=== PATIENT | male | born 1940 | race Caucasian/White ===

== ENCOUNTER 2019-08-27 15:33 | Emergency (ER) | payer OTHER ==
[~2019-08-27] VITALS: Ht 175.3 cm; Wt 76.7 kg
[2019-08-27 15:40] VITALS: BP_SYST 164
--- NOTE | 2019-08-27 16:02 | NUR ---
Patient presents to ER C/O elbow pain. Patient ambulatory to ER, A&Ox4, skin pink & warm, afebrile, pain 09/20, denies N/V/D. Patient states he has left elbow pain and click sound when bending elbow x3 weeks, since [place] [employer] weekend; denies head trauma.
--- NOTE | 2019-08-27 16:02 | NUR ---
Patient to ER bed 2 to gown for evaluation. Side rails up.
--- NOTE | 2019-08-27 16:18 | NUR ---
ER Dr. Christopher at bedside examining patient.
[2019-08-27 17:50] VITALS: BP_SYST 144
--- NOTE | 2019-08-27 17:50 | NUR ---
Patient given written and verbal discharge instructions and verbalizes understanding. ER MD discussed with patient the results and treatment provided. Patient in stable condition. ID arm band removed. Rx of naproxen given. Patient educated on pain management and to follow up with PMD. Pain Scale 3/10 . Opportunity for questions provided and answered. Medication side effect fact sheet provided.
== END 2019-08-27 17:50 | disposition home or self-care (01) ==
LOC: SED 15:33
DX: S82.65XA Nondisplaced fracture of lateral malleolus of left fibula, initial encounter for closed fracture (principal); E11.9 Type 2 diabetes mellitus without complications; W01.0XXA Fall on same level from slipping, tripping and stumbling without subsequent striking against object, initial encounter; Y93.89 Activity, other specified; Y92.89 Other specified places as the place of occurrence of the external cause; Y99.8 Other external cause status
CPT/HCPCS: 99283

== ENCOUNTER 2022-05-03 00:49 | Inpatient (IN) | payer OTHER ==
[~2022-05-03] VITALS: Ht 175.3 cm; Wt 72.7 kg
[2022-05-03 00:49] VITALS: BP_SYST 157
[2022-05-03] MEDS ORDERED: NACL 0.9% 1,000 ML IV ONE ×2 (01:15→01:45)
[2022-05-03 01:35] LABS: BASOPHILS # (AUTO) 0.1 K/uL (0.0-0.2); EOSINOPHILS # (AUTO) 0.1 K/uL (0.0-0.4); LYMPHOCYTES # (AUTO) 0.4 K/uL (1.0-5.5); LYMPHOCYTES % (AUTO) 2.9 % (20.5-51.5); MEAN CORPUSCULAR HEMOGLOBIN 31 pg (27-31); MEAN CORPUSCULAR HGB CONC 33 % (32-36); MEAN CORPUSCULAR VOLUME 92 fL (79.0-98.0); MONOCYTES # (AUTO) 0.4 K/uL (0.0-1.0); NEUTROPHILS # (AUTO) 12.1 K/uL (1.8-7.7); NEUTROPHILS % (AUTO) 92.1 % (40.0-70.0); PLATELET COUNT (AUTO) 261 K/uL (130-430); RED BLOOD CELL COUNT(AUTO) 3.93 MIL/uL (4.2-6.2); RED CELL DISTRIBUTION WIDTH 13.8 % (9.0-15.0); WHITE BLOOD COUNT (AUTO) 13.1 K/uL (4.8-10.8)
[2022-05-03] MEDS ORDERED: ACETAMINOPHEN 500 MG TABLET PO ONE (01:45)
[2022-05-03 01:48] LABS: ALANINE AMINOTRANSFERASE 21 U/L (12-78); ALBUMIN 3.6 g/dL (3.4-4.8); ANION GAP 7 (5-15); ASPARTATE AMINOTRANSFERASE 11 U/L (10-37); CALCIUM 9.2 mg/dL (8.4-11.0); CHLORIDE 104 mmol/L (98-107); CREATININE 1.66 mg/dL (0.55-1.30); GLUCOSE 317 mg/dL (70-99); TOTAL BILIRUBIN 0.4 mg/dL (0.0-1.0); UREA NITROGEN, BLOOD 27 mg/dL (8-21)
[2022-05-03] MEDS ORDERED: IPRATROPIUM/ALBUTEROL SULFATE 3 ML AMPUL.NEB (DUONEB) INH ONE (02:00)
[2022-05-03] MEDS ORDERED: DEXAMETHASONE SOD PHOSPHATE 10 MG/ML VIAL IVP ONE (02:00)
[2022-05-03] MEDS ORDERED: BUDE6HFA INH (02:33)
[2022-05-03] MEDS ORDERED: CITA40TA22 PO (02:34)
[2022-05-03] MEDS ORDERED: LOSA50TA3 PO (02:34)
[2022-05-03] MEDS ORDERED: METF-380 PO (02:35)
[2022-05-03] MEDS ORDERED: MONT-47 PO (02:36)
[2022-05-03] MEDS ORDERED: PRAV40TA63 PO (02:37)
[2022-05-03] MEDS ORDERED: TAMS-11 PO (02:38)
[2022-05-03] MEDS ORDERED: ASPI-1393 PO (02:39)
[2022-05-03] MEDS ORDERED: NAPR-690 PO (02:40)
[2022-05-03] MEDS ORDERED: INSU100V53 SUBCUT (02:40)
[2022-05-03] MEDS ORDERED: NS 500 ML IV ONE (03:30)
[2022-05-03] MEDS ORDERED: DOXYCYCLINE HYCLATE 100 MG in D5W 100 ML IV ONE (04:15)
[2022-05-03] MEDS ORDERED: cefTRIAXone 1 GM VIAL IM ONE (04:15)
[2022-05-03] MEDS ORDERED: cefTRIAXone 1 GM in D5W 50 ML IV ONE (04:15)
[2022-05-03] MEDS ORDERED: DOXYCYCLINE HYCLATE 100 MG VIAL IV ONE (04:18)
[2022-05-03] MEDS ORDERED: cefTRIAXone 1 GM VIAL ONE (04:26)
[2022-05-03] MEDS ORDERED: NACL 0.9% 1,000 ML IV SCH (05:00)
[2022-05-03 06:34] LABS: BILIRUBIN,URINE NEGATIVE (NEGATIVE); BLOOD, URINE NEGATIVE (NEGATIVE); CLARITY/URINE CLEAR (CLEAR); COLOR,URINE YELLOW (YELLOW); GLUCOSE,URINE 1+ (NEGATIVE); KETONES,URINE NEGATIVE (NEGATIVE); LEUKOCYTE ESTERASE ,URINE NEGATIVE (NEGATIVE); NITRITE, URINE NEGATIVE (NEGATIVE); PROTEIN URINE TRACE (NEGATIVE); UROBILINOGEN,URINE 0.2 (0.2-1.0)
[2022-05-03] MEDS ORDERED: ONDANSETRON HCL 4 MG/2 ML VIAL IVP PRN (14:45)
[2022-05-03] MEDS ORDERED: HYDROcodone/ACETAMIN 5-325 MG TAB (NORCO/ VICODIN) PO PRN (14:45)
[2022-05-03] MEDS ORDERED: ACETAMINOPHEN 325 MG TABLET PO PRN (14:45)
[2022-05-03] MEDS ORDERED: LORazepam 2 MG/ML VIAL IVP PRN (14:45)
[2022-05-03] MEDS ORDERED: IPRATROPIUM BROM 0.5 MG/2.5 ML VIAL.NEB (ATROVENT) INH PRN (14:45)
[2022-05-03] MEDS ORDERED: NALOXONE HCL 0.4 MG/ML AMP (NARCAN) IVP PRN ×2 (14:45)
[2022-05-03 14:54] VITALS: BP_SYST 142
[2022-05-03] MEDS: D5/0.45 NS 1,000 ML IV SCH ×2 (15:00→16:29)
[2022-05-03] MEDS ORDERED: NAPROXEN 250 MG TABLET PO PRN (17:30)
[2022-05-03] MEDS ORDERED: FUROSEMIDE 20 MG/2 ML VIAL IVP ONE (17:45)
[2022-05-03] MEDS ORDERED: CARVEDILOL 3.125 MG TABLET (COREG) PO ONE (17:45)
[2022-05-03] MEDS ORDERED: cefTRIAXone 1 GM IVPB PREMIX 50 ML IV SCH (20:00)
[2022-05-03] MEDS: BUDESONIDE 0.5 MG/2 ML AMPUL.NEB INH SCH (20:32)
[2022-05-03] MEDS: ALBUTEROL SULFATE 0.083% 2.5 MG/3 ML VIAL.NEB INH SCH (20:35)
[2022-05-03] MEDS ORDERED: NON-FORMULARY MEDICATION (Pravastatin Sodium 1 TAB) PO SCH (21:00)
[2022-05-03 23:01] VITALS: BP_SYST 134
[2022-05-04] MEDS: ATORVASTATIN 10 MG TABLET PO SCH ×2 (00:36→20:54)
[2022-05-04] MEDS: INSULIN GLARGINE 100 UNITS/ML, 10 ML VIAL SUBCUT SCH ×2 (00:37→21:02)
[2022-05-04] MEDS: INSULIN REGULAR, HUMAN 100 UNITS/ML, 3 ML VIAL (humuLIN R) SUBCUT PRN ×4 (00:40→21:03)
[2022-05-04] MEDS ORDERED: AZITHROMYCIN 500 MG/VIAL (ZITHROMAX) IV ONE (01:39)
[2022-05-04] MEDS: AZITHROMYCIN 500 MG in NS 250 ML IV SCH ×2 (02:27→20:53)
[2022-05-04] MEDS: D5/0.45 NS 1,000 ML IV SCH ×2 (02:28→12:18)
[2022-05-04 02:40] VITALS: BP_SYST 128
[2022-05-04] MEDS: ALBUTEROL SULFATE 0.083% 2.5 MG/3 ML VIAL.NEB INH PRN ×2 (03:06→08:58)
[2022-05-04] MEDS ORDERED: FUROSEMIDE 40 MG/4 ML VIAL IVP ONE ×2 (03:30→09:15)
[2022-05-04] MEDS: BUDESONIDE 0.5 MG/2 ML AMPUL.NEB INH SCH ×2 (07:27→19:58)
[2022-05-04] MEDS: ALBUTEROL SULFATE 0.083% 2.5 MG/3 ML VIAL.NEB INH SCH ×2 (07:27→19:58)
[2022-05-04 07:56] VITALS: BP_SYST 162
[2022-05-04 08:26] LABS: BASOPHILS % (AUTO) 0.1 % (0.0-2.0); HEMATOCRIT 36.2 % (36-54); HEMOGLOBIN 12.2 g/dL (14.0-18.0); LYMPHOCYTES # (AUTO) 1.5 K/uL (1.0-5.5); LYMPHOCYTES % (AUTO) 16.9 % (20.5-51.5); MEAN CORPUSCULAR HEMOGLOBIN 31 pg (27-31); MEAN CORPUSCULAR HGB CONC 34 % (32-36); MEAN CORPUSCULAR VOLUME 92 fL (79.0-98.0); MONOCYTES # (AUTO) 0.9 K/uL (0.0-1.0); MONOCYTES % (AUTO) 10.8 % (1.7-9.3); NEUTROPHILS # (AUTO) 6.3 K/uL (1.8-7.7); NEUTROPHILS % (AUTO) 72.2 % (40.0-70.0); PLATELET COUNT (AUTO) 226 K/uL (130-430); RED BLOOD CELL COUNT(AUTO) 3.96 MIL/uL (4.2-6.2); WHITE BLOOD COUNT (AUTO) 8.7 K/uL (4.8-10.8)
[2022-05-04 08:45] LABS: ANION GAP 9 (5-15); CALCIUM 8.7 mg/dL (8.4-11.0); CHLORIDE 101 mmol/L (98-107); CREATININE 1.43 mg/dL (0.55-1.30); GLUCOSE 143 mg/dL (70-99); PHOSPHORUS 2.1 mg/dL (2.7-4.5); UREA NITROGEN, BLOOD 19 mg/dL (8-21)
[2022-05-04] MEDS: ASPIRIN 81 MG TABLET(ECOTRIN) PO SCH (08:50)
[2022-05-04] MEDS: CITALOPRAM HYDROBROMIDE 20 MG TABLET PO SCH (08:52)
[2022-05-04] MEDS: TAMSULOSIN HCL 0.4 MG CAP PO SCH (08:52)
[2022-05-04] MEDS: LOSARTAN POTASSIUM 50 MG TABLET (COZAAR) PO SCH (08:53)
[2022-05-04] MEDS ORDERED: CARVEDILOL 3.125 MG TABLET (COREG) PO SCH (09:00)
[2022-05-04 11:51] VITALS: BP_SYST 144
[2022-05-04] MEDS: PIPERACILLIN/TAZO 3.375/DEX-IS 50 ML IV SCH ×2 (11:53→17:31)
[2022-05-04] MEDS ORDERED: ISOSORBIDE MONONITRATE 30 MG TAB.ER.24H PO ONE (14:00)
[2022-05-04] MEDS ORDERED: DIGOXIN 0.5 MG/2 ML AMP IVP ONE (14:00)
[2022-05-04 17:28] VITALS: BP_SYST 140
[2022-05-04] MEDS: MONTELUKAST 10 MG TABLET PO SCH (17:29)
[2022-05-04 20:00] VITALS: BP_SYST 120
[2022-05-04] MEDS: CARVEDILOL 6.25 MG TABLET (COREG) PO SCH (20:54)
[2022-05-05 00:28] VITALS: BP_SYST 118
[2022-05-05] MEDS: PIPERACILLIN/TAZO 3.375/DEX-IS 50 ML IV SCH ×4 (01:05→18:15)
[2022-05-05] MEDS: HYDROcodone/ACETAMIN 10-325 MG TAB PO PRN ×3 (05:38→15:17)
[2022-05-05] MEDS: INSULIN REGULAR, HUMAN 100 UNITS/ML, 3 ML VIAL (humuLIN R) SUBCUT PRN ×2 (06:15→12:25)
[2022-05-05] MEDS: ALBUTEROL SULFATE 0.083% 2.5 MG/3 ML VIAL.NEB INH SCH (07:06)
[2022-05-05] MEDS: BUDESONIDE 0.5 MG/2 ML AMPUL.NEB INH SCH (07:07)
[2022-05-05 08:34] VITALS: BP_SYST 112
[2022-05-05] MEDS: ISOSORBIDE MONONITRATE 30 MG TAB.ER.24H PO SCH (09:10)
[2022-05-05] MEDS: TAMSULOSIN HCL 0.4 MG CAP PO SCH (09:10)
[2022-05-05] MEDS: LOSARTAN POTASSIUM 50 MG TABLET (COZAAR) PO SCH (09:11)
[2022-05-05] MEDS: CITALOPRAM HYDROBROMIDE 20 MG TABLET PO SCH (09:11)
[2022-05-05] MEDS: CARVEDILOL 6.25 MG TABLET (COREG) PO SCH (09:11)
[2022-05-05] MEDS: FUROSEMIDE 40 MG/4 ML VIAL IVP SCH (09:12)
[2022-05-05] MEDS: ASPIRIN 81 MG TABLET(ECOTRIN) PO SCH (09:12)
[2022-05-05 11:28] LABS: ANION GAP 9 (5-15); CALCIUM 8.7 mg/dL (8.4-11.0); CHLORIDE 97 mmol/L (98-107); CREATININE 2.49 mg/dL (0.55-1.30); GLUCOSE 253 mg/dL (70-99); UREA NITROGEN, BLOOD 42 mg/dL (8-21)
[2022-05-05] MEDS ORDERED: BISACODYL 10 MG/SUPPOSITORY RC ONE (11:30)
[2022-05-05 11:36] LABS: ALANINE AMINOTRANSFERASE 26 U/L (12-78); ASPARTATE AMINOTRANSFERASE 17 U/L (10-37); DIGOXIN 0.1 ng/mL (0.80-2.00); TOTAL BILIRUBIN 0.9 mg/dL (0.0-1.0)
[2022-05-05] MEDS ORDERED: FUROSEMIDE 20 MG/2 ML VIAL IVP ONE (12:30)
[2022-05-05] MEDS ORDERED: DIGOXIN 0.5 MG/2 ML AMP IVP ONE (12:30)
[2022-05-05 13:00] VITALS: BP_SYST 143
[2022-05-05] MEDS ORDERED: FINA5TAB3 PO (13:09)
[2022-05-05] MEDS: IPRATROPIUM/ALBUTEROL SULFATE 3 ML AMPUL.NEB (DUONEB) INH PRN (13:17)
[2022-05-05] MEDS ORDERED: NACL 0.9% 1,000 ML IV SCH (15:45)
[2022-05-05 16:17] VITALS: BP_SYST 136
[2022-05-05] MEDS: MONTELUKAST 10 MG TABLET PO SCH (18:15)
[2022-05-05 19:00] VITALS: BP_SYST 107
[2022-05-05 19:46] LABS: BILIRUBIN,URINE NEGATIVE (NEGATIVE); BLOOD, URINE NEGATIVE (NEGATIVE); CLARITY/URINE CLEAR (CLEAR); COLOR,URINE YELLOW (YELLOW); GLUCOSE,URINE NEGATIVE (NEGATIVE); KETONES,URINE NEGATIVE (NEGATIVE); LEUKOCYTE ESTERASE ,URINE NEGATIVE (NEGATIVE); NITRITE, URINE NEGATIVE (NEGATIVE); PROTEIN URINE NEGATIVE (NEGATIVE); UROBILINOGEN,URINE 0.2 (0.2-1.0)
[2022-05-05 20:00] VITALS: BP_SYST 107
[2022-05-05] MEDS: INSULIN GLARGINE 100 UNITS/ML, 10 ML VIAL SUBCUT SCH (21:00)
[2022-05-05] MEDS ORDERED: DOCUSATE SODIUM 250 MG CAPSULE PO SCH (21:00)
[2022-05-05] MEDS: ATORVASTATIN 20 MG TABLET PO SCH (21:09)
[2022-05-05] MEDS: AZITHROMYCIN 500 MG in NS 250 ML IV SCH (21:09)
[2022-05-05] MEDS: DOCUSATE SODIUM 100 MG CAPSULE PO SCH (21:09)
[2022-05-05] MEDS: CARVEDILOL 12.5 MG TABLET (COREG) PO SCH (21:11)
[2022-05-06] VITALS (7 sets, daily range): BP systolic 89–124
[2022-05-06] MEDS: PIPERACILLIN/TAZO 3.375/DEX-IS 50 ML IV SCH ×3 (00:14→08:59)
[2022-05-06] MEDS: BUDESONIDE 0.5 MG/2 ML AMPUL.NEB INH SCH ×2 (07:30→19:26)
[2022-05-06] MEDS: ALBUTEROL SULFATE 0.083% 2.5 MG/3 ML VIAL.NEB INH SCH ×2 (07:30→19:26)
[2022-05-06] MEDS: ISOSORBIDE MONONITRATE 30 MG TAB.ER.24H PO SCH (08:19)
[2022-05-06] MEDS: DOCUSATE SODIUM 100 MG CAPSULE PO SCH ×2 (08:19→20:54)
[2022-05-06] MEDS: LOSARTAN POTASSIUM 50 MG TABLET (COZAAR) PO SCH (08:19)
[2022-05-06] MEDS: TAMSULOSIN HCL 0.4 MG CAP PO SCH (08:19)
[2022-05-06] MEDS: ASPIRIN 81 MG TABLET(ECOTRIN) PO SCH (08:20)
[2022-05-06] MEDS: CITALOPRAM HYDROBROMIDE 20 MG TABLET PO SCH (08:20)
[2022-05-06] MEDS: FUROSEMIDE 40 MG/4 ML VIAL IVP SCH (08:21)
[2022-05-06] MEDS: CARVEDILOL 12.5 MG TABLET (COREG) PO SCH ×2 (08:45→21:02)
[2022-05-06] MEDS: HYDROcodone/ACETAMIN 10-325 MG TAB PO PRN (08:46)
[2022-05-06 09:23] LABS: ALANINE AMINOTRANSFERASE 23 U/L (12-78); ALBUMIN 2.6 g/dL (3.4-4.8); ANION GAP 6 (5-15); ASPARTATE AMINOTRANSFERASE 14 U/L (10-37); CALCIUM 8.1 mg/dL (8.4-11.0); CHLORIDE 97 mmol/L (98-107); GLUCOSE 116 mg/dL (70-99); TOTAL BILIRUBIN 0.9 mg/dL (0.0-1.0); UREA NITROGEN, BLOOD 52 mg/dL (8-21)
[2022-05-06 09:36] LABS: BASOPHILS % (AUTO) 0.1 % (0.0-2.0); HEMATOCRIT 30.8 % (36-54); HEMOGLOBIN 10.5 g/dL (14.0-18.0); LYMPHOCYTES # (AUTO) 0.8 K/uL (1.0-5.5); LYMPHOCYTES % (AUTO) 8.2 % (20.5-51.5); MEAN CORPUSCULAR HEMOGLOBIN 31 pg (27-31); MEAN CORPUSCULAR HGB CONC 34 % (32-36); MEAN CORPUSCULAR VOLUME 91 fL (79.0-98.0); MONOCYTES % (AUTO) 10.5 % (1.7-9.3); NEUTROPHILS # (AUTO) 7.6 K/uL (1.8-7.7); NEUTROPHILS % (AUTO) 81.2 % (40.0-70.0); PLATELET COUNT (AUTO) 223 K/uL (130-430); RED BLOOD CELL COUNT(AUTO) 3.38 MIL/uL (4.2-6.2); RED CELL DISTRIBUTION WIDTH 13.7 % (9.0-15.0); WHITE BLOOD COUNT (AUTO) 9.4 K/uL (4.8-10.8)
[2022-05-06 09:57] LABS: DIGOXIN 0.7 ng/mL (0.80-2.00)
[2022-05-06] MEDS: cefTRIAXone 1 GM in D5W 50 ML IV SCH (11:37)
[2022-05-06] MEDS: IPRATROPIUM/ALBUTEROL SULFATE 3 ML AMPUL.NEB (DUONEB) INH PRN (16:00)
[2022-05-06] MEDS: MONTELUKAST 10 MG TABLET PO SCH (17:56)
[2022-05-06] MEDS: AZITHROMYCIN 500 MG in NS 250 ML IV SCH (20:48)
[2022-05-06] MEDS: ATORVASTATIN 20 MG TABLET PO SCH (20:54)
[2022-05-06] MEDS: INSULIN GLARGINE 100 UNITS/ML, 10 ML VIAL SUBCUT SCH (21:10)
[2022-05-07 00:42] VITALS: BP_SYST 132
[2022-05-07 07:11] LABS: EOSINOPHILS % (AUTO) 0.1 % (0.0-4.0); HEMATOCRIT 29.8 % (36-54); HEMOGLOBIN 10.5 g/dL (14.0-18.0); LYMPHOCYTES # (AUTO) 1.4 K/uL (1.0-5.5); LYMPHOCYTES % (AUTO) 14.4 % (20.5-51.5); MEAN CORPUSCULAR HEMOGLOBIN 32 pg (27-31); MEAN CORPUSCULAR HGB CONC 35 % (32-36); MEAN CORPUSCULAR VOLUME 90 fL (79.0-98.0); MONOCYTES # (AUTO) 1.3 K/uL (0.0-1.0); MONOCYTES % (AUTO) 13.7 % (1.7-9.3); NEUTROPHILS # (AUTO) 6.9 K/uL (1.8-7.7); NEUTROPHILS % (AUTO) 71.8 % (40.0-70.0); PLATELET COUNT (AUTO) 232 K/uL (130-430); RED CELL DISTRIBUTION WIDTH 13.8 % (9.0-15.0); WHITE BLOOD COUNT (AUTO) 9.7 K/uL (4.8-10.8)
[2022-05-07 07:39] LABS: ALANINE AMINOTRANSFERASE 11 U/L (12-78); ALBUMIN 2.5 g/dL (3.4-4.8); ANION GAP 10 (5-15); ASPARTATE AMINOTRANSFERASE 15 U/L (10-37); C-REACTIVE PROTEIN QUANT 15.5 mg/dL (0-0.5); CALCIUM 8.1 mg/dL (8.4-11.0); CHLORIDE 96 mmol/L (98-107); CREATININE 1.51 mg/dL (0.55-1.30); GLUCOSE 187 mg/dL (70-99); PHOSPHORUS 2.8 mg/dL (2.7-4.5); TOTAL BILIRUBIN 0.7 mg/dL (0.0-1.0); UREA NITROGEN, BLOOD 44 mg/dL (8-21)
[2022-05-07 07:53] VITALS: BP_SYST 139
[2022-05-07 08:40] LABS: ERYTHROCYTE SEDIMENTATION RATE 71 MM/HR (0-15)
[2022-05-07] MEDS: DOCUSATE SODIUM 100 MG CAPSULE PO SCH ×2 (09:23→20:41)
[2022-05-07] MEDS: CITALOPRAM HYDROBROMIDE 20 MG TABLET PO SCH (09:23)
[2022-05-07] MEDS: CARVEDILOL 12.5 MG TABLET (COREG) PO SCH ×2 (09:24→20:53)
[2022-05-07] MEDS: ASPIRIN 81 MG TABLET(ECOTRIN) PO SCH (09:25)
[2022-05-07] MEDS: LOSARTAN POTASSIUM 50 MG TABLET (COZAAR) PO SCH (09:42)
[2022-05-07] MEDS: TAMSULOSIN HCL 0.4 MG CAP PO SCH (09:42)
[2022-05-07] MEDS: BUDESONIDE 0.5 MG/2 ML AMPUL.NEB INH SCH ×2 (10:03→10:08)
[2022-05-07] MEDS: ALBUTEROL SULFATE 0.083% 2.5 MG/3 ML VIAL.NEB INH SCH ×2 (10:03→10:08)
[2022-05-07 12:00] VITALS: BP_SYST 141
[2022-05-07] MEDS: ISOSORBIDE MONONITRATE 30 MG TAB.ER.24H PO SCH (12:11)
[2022-05-07] MEDS: cefTRIAXone 1 GM in D5W 50 ML IV SCH (12:17)
[2022-05-07] MEDS: INSULIN REGULAR, HUMAN 100 UNITS/ML, 3 ML VIAL (humuLIN R) SUBCUT PRN ×2 (12:55→17:16)
[2022-05-07] MEDS: HYDROcodone/ACETAMIN 10-325 MG TAB PO PRN ×2 (13:19→20:29)
[2022-05-07] MEDS ORDERED: DIGOXIN 0.5 MG/2 ML AMP IVP ONE (14:15)
[2022-05-07 16:50] VITALS: BP_SYST 107
[2022-05-07] MEDS: MONTELUKAST 10 MG TABLET PO SCH (18:08)
[2022-05-07 20:00] VITALS: BP_SYST 130
[2022-05-07] MEDS: ATORVASTATIN 20 MG TABLET PO SCH (20:51)
[2022-05-07] MEDS: INSULIN GLARGINE 100 UNITS/ML, 10 ML VIAL SUBCUT SCH (20:55)
[2022-05-07] MEDS: AZITHROMYCIN 500 MG in NS 250 ML IV SCH (21:11)
[2022-05-08 04:00] VITALS: BP_SYST 122
[2022-05-08] MEDS: BUDESONIDE 0.5 MG/2 ML AMPUL.NEB INH SCH ×2 (07:18→19:40)
[2022-05-08] MEDS: ALBUTEROL SULFATE 0.083% 2.5 MG/3 ML VIAL.NEB INH SCH ×2 (07:18→19:34)
[2022-05-08 07:51] LABS: BASOPHILS % (AUTO) 0.1 % (0.0-2.0); EOSINOPHILS # (AUTO) 0.1 K/uL (0.0-0.4); EOSINOPHILS % (AUTO) 0.5 % (0.0-4.0); HEMATOCRIT 30.8 % (36-54); HEMOGLOBIN 10.6 g/dL (14.0-18.0); LYMPHOCYTES # (AUTO) 1.5 K/uL (1.0-5.5); LYMPHOCYTES % (AUTO) 13.7 % (20.5-51.5); MEAN CORPUSCULAR HEMOGLOBIN 31 pg (27-31); MEAN CORPUSCULAR HGB CONC 34 % (32-36); MEAN CORPUSCULAR VOLUME 90 fL (79.0-98.0); MONOCYTES # (AUTO) 1.5 K/uL (0.0-1.0); NEUTROPHILS # (AUTO) 7.9 K/uL (1.8-7.7); NEUTROPHILS % (AUTO) 71.7 % (40.0-70.0); PLATELET COUNT (AUTO) 250 K/uL (130-430); RED BLOOD CELL COUNT(AUTO) 3.43 MIL/uL (4.2-6.2); RED CELL DISTRIBUTION WIDTH 13.7 % (9.0-15.0)
[2022-05-08 07:53] LABS: ANION GAP 7 (5-15); C-REACTIVE PROTEIN QUANT 9.8 mg/dL (0-0.5); CALCIUM 8.3 mg/dL (8.4-11.0); CHLORIDE 96 mmol/L (98-107); CREATININE 0.98 mg/dL (0.55-1.30); GLUCOSE 231 mg/dL (70-99); PHOSPHORUS 2.4 mg/dL (2.7-4.5); UREA NITROGEN, BLOOD 28 mg/dL (8-21)
[2022-05-08 08:10] LABS: ERYTHROCYTE SEDIMENTATION RATE 62 MM/HR (0-15)
[2022-05-08] MEDS: LOSARTAN POTASSIUM 50 MG TABLET (COZAAR) PO SCH (08:52)
[2022-05-08] MEDS: ISOSORBIDE MONONITRATE 30 MG TAB.ER.24H PO SCH (08:52)
[2022-05-08] MEDS: ASPIRIN 81 MG TABLET(ECOTRIN) PO SCH (08:53)
[2022-05-08] MEDS: DOCUSATE SODIUM 100 MG CAPSULE PO SCH ×2 (08:53→21:06)
[2022-05-08] MEDS: TAMSULOSIN HCL 0.4 MG CAP PO SCH (08:54)
[2022-05-08] MEDS: CITALOPRAM HYDROBROMIDE 20 MG TABLET PO SCH (08:54)
[2022-05-08 08:55] VITALS: BP_SYST 150
[2022-05-08] MEDS: CARVEDILOL 12.5 MG TABLET (COREG) PO SCH ×2 (08:55→21:08)
[2022-05-08] MEDS: HYDROcodone/ACETAMIN 10-325 MG TAB PO PRN ×2 (09:01→21:07)
[2022-05-08] MEDS: cefTRIAXone 1 GM in D5W 50 ML IV SCH (11:29)
[2022-05-08 11:34] VITALS: BP_SYST 155
[2022-05-08] MEDS: INSULIN REGULAR, HUMAN 100 UNITS/ML, 3 ML VIAL (humuLIN R) SUBCUT PRN ×3 (11:50→21:25)
[2022-05-08] MEDS ORDERED: NA PHOS 15 MM in NS 250 ML IV ONE (14:00)
[2022-05-08 15:28] VITALS: BP_SYST 114
[2022-05-08] MEDS: MONTELUKAST 10 MG TABLET PO SCH (17:40)
[2022-05-08 20:00] VITALS: BP_SYST 143
[2022-05-08] MEDS: ATORVASTATIN 20 MG TABLET PO SCH (21:10)
[2022-05-08] MEDS: INSULIN GLARGINE 100 UNITS/ML, 10 ML VIAL SUBCUT SCH (21:24)
[2022-05-09] VITALS (7 sets, daily range): BP systolic 145–154
[2022-05-09] MEDS: INSULIN REGULAR, HUMAN 100 UNITS/ML, 3 ML VIAL (humuLIN R) SUBCUT PRN ×4 (06:54→21:44)
[2022-05-09] MEDS: ALBUTEROL SULFATE 0.083% 2.5 MG/3 ML VIAL.NEB INH SCH ×2 (07:26→21:44)
[2022-05-09] MEDS: BUDESONIDE 0.5 MG/2 ML AMPUL.NEB INH SCH ×2 (07:27→21:45)
[2022-05-09 08:17] LABS: BASOPHILS % (AUTO) 0.3 % (0.0-2.0); EOSINOPHILS # (AUTO) 0.1 K/uL (0.0-0.4); EOSINOPHILS % (AUTO) 1.5 % (0.0-4.0); HEMATOCRIT 30.7 % (36-54); HEMOGLOBIN 10.6 g/dL (14.0-18.0); LYMPHOCYTES # (AUTO) 2.2 K/uL (1.0-5.5); MEAN CORPUSCULAR HEMOGLOBIN 31 pg (27-31); MEAN CORPUSCULAR HGB CONC 35 % (32-36); MEAN CORPUSCULAR VOLUME 90 fL (79.0-98.0); MONOCYTES # (AUTO) 1.5 K/uL (0.0-1.0); MONOCYTES % (AUTO) 15.4 % (1.7-9.3); NEUTROPHILS % (AUTO) 60.8 % (40.0-70.0); PLATELET COUNT (AUTO) 286 K/uL (130-430); RED BLOOD CELL COUNT(AUTO) 3.43 MIL/uL (4.2-6.2); RED CELL DISTRIBUTION WIDTH 13.5 % (9.0-15.0); WHITE BLOOD COUNT (AUTO) 9.9 K/uL (4.8-10.8)
[2022-05-09 08:33] LABS: ERYTHROCYTE SEDIMENTATION RATE 43 MM/HR (0-15)
[2022-05-09 08:37] LABS: ANION GAP 5 (5-15); C-REACTIVE PROTEIN QUANT 8.4 mg/dL (0-0.5); CALCIUM 8.6 mg/dL (8.4-11.0); CHLORIDE 98 mmol/L (98-107); CREATININE 1.02 mg/dL (0.55-1.30); GLUCOSE 183 mg/dL (70-99); UREA NITROGEN, BLOOD 24 mg/dL (8-21)
[2022-05-09] MEDS: ASPIRIN 81 MG TABLET(ECOTRIN) PO SCH (09:06)
[2022-05-09] MEDS: LOSARTAN POTASSIUM 50 MG TABLET (COZAAR) PO SCH (09:06)
[2022-05-09] MEDS: TAMSULOSIN HCL 0.4 MG CAP PO SCH (09:06)
[2022-05-09] MEDS: DOCUSATE SODIUM 100 MG CAPSULE PO SCH ×2 (09:07→21:24)
[2022-05-09] MEDS: CITALOPRAM HYDROBROMIDE 20 MG TABLET PO SCH (09:07)
[2022-05-09] MEDS: CARVEDILOL 12.5 MG TABLET (COREG) PO SCH ×2 (09:09→21:24)
[2022-05-09] MEDS: ISOSORBIDE MONONITRATE 30 MG TAB.ER.24H PO SCH (09:10)
[2022-05-09] MEDS: cefTRIAXone 1 GM in D5W 50 ML IV SCH (12:06)
[2022-05-09] MEDS: MONTELUKAST 10 MG TABLET PO SCH (17:18)
[2022-05-09] MEDS: HYDROcodone/ACETAMIN 10-325 MG TAB PO PRN (21:23)
[2022-05-09] MEDS: ATORVASTATIN 20 MG TABLET PO SCH (21:24)
[2022-05-09] MEDS: PROMETHAZINE-DM 6.25 MG-15 MG/5 ML UDC PO PRN (21:38)
[2022-05-09] MEDS: INSULIN GLARGINE 100 UNITS/ML, 10 ML VIAL SUBCUT SCH (21:46)
[2022-05-10] MEDS: PROMETHAZINE-DM 6.25 MG-15 MG/5 ML UDC PO PRN ×3 (02:30→05:49)
[2022-05-10 04:02] VITALS: BP_SYST 134
[2022-05-10 06:53] LABS: BASOPHILS % (AUTO) 0.4 % (0.0-2.0); EOSINOPHILS # (AUTO) 0.3 K/uL (0.0-0.4); EOSINOPHILS % (AUTO) 3.1 % (0.0-4.0); HEMATOCRIT 30.8 % (36-54); HEMOGLOBIN 10.7 g/dL (14.0-18.0); LYMPHOCYTES # (AUTO) 2.2 K/uL (1.0-5.5); LYMPHOCYTES % (AUTO) 22.5 % (20.5-51.5); MEAN CORPUSCULAR HEMOGLOBIN 31 pg (27-31); MEAN CORPUSCULAR HGB CONC 35 % (32-36); MEAN CORPUSCULAR VOLUME 90 fL (79.0-98.0); MONOCYTES # (AUTO) 1.3 K/uL (0.0-1.0); MONOCYTES % (AUTO) 13.9 % (1.7-9.3); NEUTROPHILS # (AUTO) 5.8 K/uL (1.8-7.7); NEUTROPHILS % (AUTO) 60.1 % (40.0-70.0); PLATELET COUNT (AUTO) 333 K/uL (130-430); RED BLOOD CELL COUNT(AUTO) 3.44 MIL/uL (4.2-6.2); RED CELL DISTRIBUTION WIDTH 13.5 % (9.0-15.0); WHITE BLOOD COUNT (AUTO) 9.6 K/uL (4.8-10.8)
[2022-05-10] MEDS: BUDESONIDE 0.5 MG/2 ML AMPUL.NEB INH SCH (07:23)
[2022-05-10] MEDS: ALBUTEROL SULFATE 0.083% 2.5 MG/3 ML VIAL.NEB INH SCH (07:23)
[2022-05-10 07:37] LABS: ALANINE AMINOTRANSFERASE 22 U/L (12-78); ALBUMIN 2.4 g/dL (3.4-4.8); ANION GAP 5 (5-15); ASPARTATE AMINOTRANSFERASE 16 U/L (10-37); C-REACTIVE PROTEIN QUANT 5.9 mg/dL (0-0.5); CALCIUM 8.5 mg/dL (8.4-11.0); CHLORIDE 99 mmol/L (98-107); CREATININE 0.93 mg/dL (0.55-1.30); GLUCOSE 128 mg/dL (70-99); TOTAL BILIRUBIN 0.5 mg/dL (0.0-1.0); UREA NITROGEN, BLOOD 28 mg/dL (8-21)
[2022-05-10 08:00] VITALS: BP_SYST 144
[2022-05-10] MEDS: LOSARTAN POTASSIUM 50 MG TABLET (COZAAR) PO SCH (08:26)
[2022-05-10] MEDS: DOCUSATE SODIUM 100 MG CAPSULE PO SCH (08:27)
[2022-05-10] MEDS: ASPIRIN 81 MG TABLET(ECOTRIN) PO SCH (08:27)
[2022-05-10] MEDS: CITALOPRAM HYDROBROMIDE 20 MG TABLET PO SCH (08:27)
[2022-05-10] MEDS: CARVEDILOL 12.5 MG TABLET (COREG) PO SCH (08:28)
[2022-05-10] MEDS: TAMSULOSIN HCL 0.4 MG CAP PO SCH (08:28)
[2022-05-10] MEDS: ISOSORBIDE MONONITRATE 30 MG TAB.ER.24H PO SCH (08:29)
[2022-05-10 08:38] LABS: ERYTHROCYTE SEDIMENTATION RATE 67 MM/HR (0-15)
[2022-05-10] MEDS: cefTRIAXone 1 GM in D5W 50 ML IV SCH (10:33)
[2022-05-10] MEDS: INSULIN REGULAR, HUMAN 100 UNITS/ML, 3 ML VIAL (humuLIN R) SUBCUT PRN (11:53)
[2022-05-10 12:00] VITALS: BP_SYST 128
[2022-05-10] MEDS ORDERED: ISOS30TA85 PO (13:16)
[2022-05-10] MEDS ORDERED: LIP20 PO (13:16)
[2022-05-10] MEDS ORDERED: COR12.5 PO (13:16)
[2022-05-10 15:23] VITALS: BP_SYST 128
[2022-05-10 16:36] VITALS: BP_SYST 132
[2022-05-11 14:15] LABS: IMMUNOGLOBULIN E,TOTAL 0.2
== END 2022-05-10 18:00 | disposition home health service (06) | DRG 871 ==
LOC: SED 00:49 → STU 04:59 → SMU 05-09 10:37
PROVIDERS: ADMIT Internal Medicine; ATTEND Internal Medicine
PROC: 0HQ0XZZ Repair Scalp Skin, External Approach (ICD-10-PCS; 2022-05-03)
PROC: 4A00X4Z Measurement of Central Nervous Electrical Activity, External Approach (ICD-10-PCS; principal; 2022-05-05)
DX: A41.9 Sepsis, unspecified organism (principal); J18.9 Pneumonia, unspecified organism; J96.01 Acute respiratory failure with hypoxia; N17.0 Acute kidney failure with tubular necrosis; J44.1 Chronic obstructive pulmonary disease with (acute) exacerbation; E87.1 Hypo-osmolality and hyponatremia; I50.30 Unspecified diastolic (congestive) heart failure; J44.0 Chronic obstructive pulmonary disease with (acute) lower respiratory infection; I11.0 Hypertensive heart disease with heart failure; E88.09 Other disorders of plasma-protein metabolism, not elsewhere classified; N40.0 Benign prostatic hyperplasia without lower urinary tract symptoms; E83.52 Hypercalcemia; R65.20 Severe sepsis without septic shock; E78.5 Hyperlipidemia, unspecified; E83.39 Other disorders of phosphorus metabolism; E11.65 Type 2 diabetes mellitus with hyperglycemia; S01.01XA Laceration without foreign body of scalp, initial encounter; W18.30XA Fall on same level, unspecified, initial encounter; F42.9 Obsessive-compulsive disorder, unspecified; S09.90XA Unspecified injury of head, initial encounter; D64.9 Anemia, unspecified; Z20.822 Contact with and (suspected) exposure to COVID-19; Z79.4 Long term (current) use of insulin; Z79.82 Long term (current) use of aspirin; Z79.899 Other long term (current) drug therapy; Y93.89 Activity, other specified; Y92.89 Other specified places as the place of occurrence of the external cause; Y99.8 Other external cause status
CPT/HCPCS: 36415; 70450-TC; 71045; 72125-TC; 76376; 76770; 80048; 80053; 80162; 81003; 82570; 82785; 82962; 83605; 83735; 83880; 84100; 84302; 84484; 85025; 85651-TC; 86140; 86635; 86738; 87040; 87070-TC; 87205-TC; 87449; 93005; 93306; 94640; 94760; 95816; 96365; 96368; 96375; 97112-GP; 97116-GP; 97163-GP; 97530-GP; 99291; G0378; J0456; J0696; J1100; J1160; J1815; J1940; J2543; J3490; J7050; J7060; J7613; J7626

== ENCOUNTER 2022-05-11 19:05 | Observation (INO) | payer OTHER ==
[~2022-05-11] VITALS: Ht 175.3 cm; Wt 73.5 kg
[~2022-05-11 19:05] MED LIST: ASPI-1393 PO; BUDE6HFA INH; CITA40TA22 PO; COR12.5 PO; FINA5TAB3 PO; INSU100V53 SUBCUT; ISOS30TA85 PO; LIP20 PO; LOSA50TA3 PO; METF-380 PO; MONT10TA22 PO; NAPR-690 PO; PRAV40TA63 PO; TAMS-11 PO
[2022-05-11 20:00] VITALS: BP_SYST 142
--- NOTE | 2022-05-11 20:04 | NUR ---
ER at bedside examining patient.
--- NOTE | 2022-05-11 20:05 | NUR ---
MD Rose at bedside examining pt.
[2022-05-11 20:54] LABS: ANION GAP 7 (5-15); CALCIUM 8.9 mg/dL (8.4-11.0); CHLORIDE 98 mmol/L (98-107); CREATININE 1.21 mg/dL (0.55-1.30); GLUCOSE 305 mg/dL (70-99); UREA NITROGEN, BLOOD 25 mg/dL (8-21)
[2022-05-11 21:01] LABS: ALANINE AMINOTRANSFERASE 24 U/L (12-78); ALBUMIN 2.7 g/dL (3.4-4.8); ASPARTATE AMINOTRANSFERASE 16 U/L (10-37); TOTAL BILIRUBIN 0.5 mg/dL (0.0-1.0)
[2022-05-11] MEDS ORDERED: IPRATROPIUM BROM 0.5 MG/2.5 ML VIAL.NEB (ATROVENT) INH ONE (21:45)
[2022-05-11] MEDS ORDERED: ALBUTEROL SULFATE 0.083% 2.5 MG/3 ML VIAL.NEB INH ONE (21:45)
--- NOTE | 2022-05-11 21:55 | NUR ---
RT at bedside for breathing tx.
--- NOTE | 2022-05-11 23:17 | NUR ---
Admit bed requested Patient will be admitted to care of Dr. Kalpan. Admitted to TELE unit. Diagnosis : HYPOXIA Inpatient (Yes or No) N Observation (Yes or No) Y Orientation concerns or request close to nursing station (Yes or No) N Covid Status : PENDING From Home (Yes or if No enter name of facility) Y Med Rec Completed (Yes of No) Y
--- NOTE | 2022-05-11 23:23 | NUR ---
Covid swab collected and sent to lab.
--- NOTE | 2022-05-12 01:02 | NUR ---
# 20 gauge angiocath placed to L HAND. Use of asceptic technique. Opsite placed over site. Blood return noted. Flushed with 10 cc of normal saline. No evidence of infiltration noted. Patient tolerated well.
--- NOTE | 2022-05-12 04:12 | NUR ---
ADMISSION NOTE Received patient from ER via yonny, received report from Loni/ RADHA. Patient admitted with diagnosis of HYPOXIA. Patient oriented to hospital routine, call light, toileting and safety-patient verbalized understanding. Addendum: 05/12/22 at 0445 by Nicky Grullon RN Educate patient for plan of care , safety ,verbalized understanding.
--- NOTE | 2022-05-12 04:24 | NUR ---
Patient will be admitted to care of MD Kaplan. Admitted to TELE unit. Will go to room 112B. Complete and up to date summary report printed. SBAR report given at bedside to RADHA Jacobs with opportunity for questions.
[2022-05-12 04:27] VITALS: BP_SYST 136
--- NOTE | 2022-05-12 04:43 | NUR ---
Andie Springer for diet order and N
--- NOTE | 2022-05-12 04:51 | NUR ---
CONSULTATION PAGED/CALLED Reason for Consultation: HYPOXIA Person Who was Notified: LEFT PHONE NO. IN EXCHANGE Consulting Physician: DR. MUNIZ Security Auditor Specialty: RACETRACK STEWARD Ordering Physician: DR. DEVINE
--- NOTE | 2022-05-12 05:46 | NUR ---
Ambulate to bathroom with steady gait , with mild SOB .kept on oxygen 2 liters/NC.
[2022-05-12] MEDS ORDERED: DEXTROSE 50% JECT 50 ML DISP.SYRIN IVP PRN (07:15)
[2022-05-12] MEDS ORDERED: ACETAMINOPHEN 325 MG TABLET PO PRN ×2 (07:15→10:15)
[2022-05-12] MEDS ORDERED: IPRATROPIUM BROM 0.5 MG/2.5 ML VIAL.NEB (ATROVENT) INH PRN (07:15)
[2022-05-12] MEDS ORDERED: ALBUTEROL SULFATE 0.083% 2.5 MG/3 ML VIAL.NEB INH PRN (07:15)
[2022-05-12] MEDS ORDERED: D5W 1,000 ML IV PRN (07:15)
[2022-05-12] MEDS ORDERED: ONDANSETRON HCL 4 MG/2 ML VIAL IVP PRN (07:15)
[2022-05-12] MEDS ORDERED: GLUCOSE (DEXTROSE) ORAL GEL -Adults PO PRN (07:15)
--- NOTE | 2022-05-12 07:26 | NUR ---
CONSULTATION PAGED REASON FOR CONSULTATION:PNEUMON A WAS CONSULT CALLED? PERSON WHO WAS NOTIFIED:SIN CONSULTING PHYSICIAN:DIMITRIS OQUENDO VOCATIONAL EXAMINER SPECIALTY:ID VOCATIONAL EXAMINER PHONE [phone]: REQUESTING PHYSICIANDENISE COX
[2022-05-12 07:45] VITALS: BP_SYST 148
--- NOTE | 2022-05-12 07:45 | NUR ---
OPENING NOTE Patient sitting at side of bed. A/O x 4, Kazakh speaking. Patient Breathing even and unlabored on oxygen saturations at 100%. NO pain, no distress, no SOB. Patient on Cardiac diet. Patient has to L hand 22g, patent on SL. Bed is locked in lowest position. Call light within reach, all needs met, will continue to monitor.
[2022-05-12] MEDS: BUDESONIDE 0.5 MG/2 ML AMPUL.NEB INH SCH ×2 (09:00→20:13)
[2022-05-12 09:25] LABS: BASOPHILS % (AUTO) 0.2 % (0.0-2.0); EOSINOPHILS # (AUTO) 0.2 K/uL (0.0-0.4); EOSINOPHILS % (AUTO) 1.7 % (0.0-4.0); HEMATOCRIT 31.6 % (36-54); HEMOGLOBIN 10.7 g/dL (14.0-18.0); LYMPHOCYTES # (AUTO) 1.7 K/uL (1.0-5.5); LYMPHOCYTES % (AUTO) 13.3 % (20.5-51.5); MEAN CORPUSCULAR HEMOGLOBIN 31 pg (27-31); MEAN CORPUSCULAR HGB CONC 34 % (32-36); MEAN CORPUSCULAR VOLUME 91 fL (79.0-98.0); MONOCYTES # (AUTO) 1.1 K/uL (0.0-1.0); MONOCYTES % (AUTO) 8.8 % (1.7-9.3); NEUTROPHILS # (AUTO) 9.4 K/uL (1.8-7.7); PLATELET COUNT (AUTO) 367 K/uL (130-430); RED BLOOD CELL COUNT(AUTO) 3.49 MIL/uL (4.2-6.2); RED CELL DISTRIBUTION WIDTH 13.9 % (9.0-15.0); WHITE BLOOD COUNT (AUTO) 12.4 K/uL (4.8-10.8)
[2022-05-12] MEDS: METHYLPREDNISOLONE SOD SUCC 40 MG/ML VIAL IVP SCH (11:01)
[2022-05-12] MEDS: IPRATROPIUM BROM 0.5 MG/2.5 ML VIAL.NEB (ATROVENT) INH SCH ×4 (11:15→23:20)
[2022-05-12] MEDS: ALBUTEROL SULFATE 0.083% 2.5 MG/3 ML VIAL.NEB INH SCH ×4 (11:16→23:20)
--- NOTE | 2022-05-12 11:27 | NUR ---
MD OLIVEROS Spoke with MD Oliveros regarding patient's status and WBC level. Per MD he stated no further changes at this moment.
[2022-05-12 11:30] VITALS: BP_SYST 127
[2022-05-12] MEDS: INSULIN REGULAR, HUMAN 100 UNITS/ML, 3 ML VIAL (humuLIN R) SUBCUT PRN ×3 (11:47→21:41)
--- NOTE | 2022-05-12 12:15 | NUR ---
ROUNDS: Patient resting in bed with at bedside. Patient Breathing even and unlabored on oxygen. No pain, no distress, no SOB. Bed is locked in lowest position. Call light within reach, all needs met, will continue to monitor.
[2022-05-12] MEDS: AZITHROMYCIN 500 MG in NS 250 ML IV SCH (13:04)
[2022-05-12] MEDS: cefTRIAXone 1 GM in D5W 50 ML IV SCH (14:20)
--- NOTE | 2022-05-12 14:30 | NUR ---
MED REC Spoke with MD Pineda regarding the Med rec and he stated he will work on it.
[2022-05-12 14:41] VITALS: BP_SYST 127
[2022-05-12 15:49] VITALS: BP_SYST 137
[2022-05-12] MEDS ORDERED: ISOSORBIDE MONONITRATE 30 MG TAB.ER.24H PO ONE (16:30)
[2022-05-12] MEDS ORDERED: ASPIRIN 81 MG TABLET(ECOTRIN) PO ONE (16:30)
[2022-05-12] MEDS ORDERED: TAMSULOSIN HCL 0.4 MG CAP PO ONE (16:30)
[2022-05-12] MEDS ORDERED: LOSARTAN POTASSIUM 50 MG TABLET (COZAAR) PO ONE (16:45)
[2022-05-12] MEDS ORDERED: FINASTERIDE 5 MG TABLET (PROSCAR) PO ONE (17:00)
[2022-05-12] MEDS: MONTELUKAST 10 MG TABLET PO SCH (17:09)
[2022-05-12] MEDS ORDERED: CITALOPRAM HYDROBROMIDE 20 MG TABLET PO ONE (17:30)
--- NOTE | 2022-05-12 18:34 | NUR ---
CLOSING NOTE Patient sitting at side of bed. A/O x 4, Niuean speaking. Patient Breathing even and unlabored on oxygen saturations at 100%. NO pain, no distress, no SOB. Patient on Cardiac diet. Patient has to L hand 22g, patent on SL. Bed is locked in lowest position. Call light within reach, all needs met, will endorse to nightshift nurse.
--- NOTE | 2022-05-12 19:30 | NUR ---
OPENING NOTE PT LYING IN BED WITH BREATHING TREATMENT. BREATHING EVEN AND NON LABORED. NO S/S OF ACUTE DISTRESS OR PAIN. BED ALARM ON. SAFETY CHECKS IN PLACE. CONTINUE TO MONITOR.
[2022-05-12 20:00] VITALS: BP_SYST 129
[2022-05-12] MEDS: ATORVASTATIN 20 MG TABLET PO SCH (21:11)
[2022-05-12] MEDS: CARVEDILOL 12.5 MG TABLET (COREG) PO SCH (21:12)
[2022-05-12] MEDS: INSULIN GLARGINE 100 UNITS/ML, 10 ML VIAL SUBCUT SCH (21:38)
--- NOTE | 2022-05-12 23:00 | NUR ---
ROUND NOTE PT LYING IN BED WITH BREATHING TREATMENT. BREATHING EVEN AND NON LABORED. NO S/S OF ACUTE DISTRESS OR PAIN. PT WET HIS BED LINENS WHILE USING URINAL. GIVEN PERINEAL CARE. CHANGED TO NEW LINENS. BED ALARM ON AND SAFETY CHECKS IN PLACE. CONTINUE TO MONITOR
[2022-05-13] VITALS (7 sets, daily range): BP systolic 121–148
[2022-05-13] MEDS: ALBUTEROL SULFATE 0.083% 2.5 MG/3 ML VIAL.NEB INH SCH ×5 (03:00→20:53)
[2022-05-13] MEDS: IPRATROPIUM BROM 0.5 MG/2.5 ML VIAL.NEB (ATROVENT) INH SCH ×5 (03:00→20:53)
--- NOTE | 2022-05-13 06:55 | NUR ---
CLOSING NOTE PT LYING BED AND EYES CLOSED. BREATHING EVEN AND NONLABORED. NO S/S OF ACUTE DISTRESS OR PAIN. MORNING BLOOD GLUCOSE 107 mg/mL. SAFETY CHECKS ON PLACE. BED ALARM ON AND LOWEST POSITION. ENDORSED TO DAY SHIFT NURSE.
--- NOTE | 2022-05-13 07:25 | NUR ---
OPENING NOTE Patient sitting at side of bed. A/O x 4, Citizen Of [place] speaking. Patient Breathing even and unlabored on RA saturations at 95%. NO pain, no distress, no SOB. Patient on Cardiac diet. Patient has to L hand 22g, patent on SL. Bed is locked in lowest position. Call light within reach, all needs met, will continue to monitor.
[2022-05-13] MEDS: BUDESONIDE 0.5 MG/2 ML AMPUL.NEB INH SCH ×2 (07:28→20:53)
[2022-05-13 08:23] LABS: BASOPHILS % (AUTO) 0.2 % (0.0-2.0); EOSINOPHILS # (AUTO) 0.1 K/uL (0.0-0.4); EOSINOPHILS % (AUTO) 0.4 % (0.0-4.0); HEMATOCRIT 31.1 % (36-54); HEMOGLOBIN 10.5 g/dL (14.0-18.0); LYMPHOCYTES # (AUTO) 2.3 K/uL (1.0-5.5); LYMPHOCYTES % (AUTO) 16.9 % (20.5-51.5); MEAN CORPUSCULAR HEMOGLOBIN 30 pg (27-31); MEAN CORPUSCULAR HGB CONC 34 % (32-36); MEAN CORPUSCULAR VOLUME 90 fL (79.0-98.0); MONOCYTES # (AUTO) 1.1 K/uL (0.0-1.0); MONOCYTES % (AUTO) 7.9 % (1.7-9.3); NEUTROPHILS # (AUTO) 10.1 K/uL (1.8-7.7); NEUTROPHILS % (AUTO) 74.6 % (40.0-70.0); PLATELET COUNT (AUTO) 426 K/uL (130-430); RED BLOOD CELL COUNT(AUTO) 3.47 MIL/uL (4.2-6.2); RED CELL DISTRIBUTION WIDTH 13.5 % (9.0-15.0); WHITE BLOOD COUNT (AUTO) 13.6 K/uL (4.8-10.8)
[2022-05-13 08:27] LABS: ALANINE AMINOTRANSFERASE 22 U/L (12-78); ALBUMIN 2.6 g/dL (3.4-4.8); ANION GAP 4 (5-15); ASPARTATE AMINOTRANSFERASE 9 U/L (10-37); CALCIUM 8.8 mg/dL (8.4-11.0); CHLORIDE 100 mmol/L (98-107); CREATININE 1.01 mg/dL (0.55-1.30); GLUCOSE 85 mg/dL (70-99); TOTAL BILIRUBIN 0.4 mg/dL (0.0-1.0); UREA NITROGEN, BLOOD 25 mg/dL (8-21)
[2022-05-13] MEDS: LOSARTAN POTASSIUM 50 MG TABLET (COZAAR) PO SCH (08:54)
[2022-05-13] MEDS: TAMSULOSIN HCL 0.4 MG CAP PO SCH (08:54)
[2022-05-13] MEDS: ISOSORBIDE MONONITRATE 30 MG TAB.ER.24H PO SCH (08:54)
[2022-05-13] MEDS: CARVEDILOL 12.5 MG TABLET (COREG) PO SCH ×2 (08:55→21:38)
[2022-05-13] MEDS: CITALOPRAM HYDROBROMIDE 20 MG TABLET PO SCH (08:55)
[2022-05-13] MEDS: ASPIRIN 81 MG TABLET(ECOTRIN) PO SCH (08:55)
[2022-05-13] MEDS: FINASTERIDE 5 MG TABLET (PROSCAR) PO SCH (08:55)
[2022-05-13] MEDS: METHYLPREDNISOLONE SOD SUCC 40 MG/ML VIAL IVP SCH (09:42)
--- NOTE | 2022-05-13 12:15 | NUR ---
ROUNDS: Patient in bed, eating. Patient Breathing even and unlabored on RA. No pain, no distress, no SOB. Bed is locked in lowest position. Call light within reach, all needs met, will continue to monitor.
[2022-05-13] MEDS: AZITHROMYCIN 500 MG in NS 250 ML IV SCH (12:38)
[2022-05-13] MEDS: cefTRIAXone 1 GM in D5W 50 ML IV SCH (12:40)
--- NOTE | 2022-05-13 14:04 | NUR ---
IV SITE Patient noted that IV site to left hand had infiltrated. Stopped IV fluids and changed IV site to left forarm 22g. New IV site patent and infusion well to pump. Patient not in pain.
--- NOTE | 2022-05-13 14:55 | NUR ---
PAIN TO OLD IV SITE Patient in pain from infiltration. Only medication available is Tylenol. Patient requested [place]. Called MD Pineda who gave new orders. Orders carried out.
[2022-05-13] MEDS ORDERED: NALOXONE HCL 0.4 MG/ML AMP (NARCAN) IVP PRN (15:00)
[2022-05-13] MEDS ORDERED: HYDROcodone/ACETAMIN 5-325 MG TAB (NORCO/ VICODIN) PO PRN (15:00)
[2022-05-13] MEDS ORDERED: PRED20TA PO (15:19)
--- NOTE | 2022-05-13 16:10 | NUR ---
ROUNDS: Patient in bed,with family at bedside. Patient Breathing even and unlabored on RA. No pain, no distress, no SOB. Bed is locked in lowest position. Call light within reach, all needs met, will continue to monitor.
[2022-05-13] MEDS: INSULIN REGULAR, HUMAN 100 UNITS/ML, 3 ML VIAL (humuLIN R) SUBCUT PRN ×2 (16:41→21:41)
[2022-05-13] MEDS: MONTELUKAST 10 MG TABLET PO SCH (17:23)
--- NOTE | 2022-05-13 18:56 | NUR ---
CLOSING NOTE Patient laying in bed, with at bedside. A/O x 4, Croatian speaking. Patient Breathing even and unlabored on RA. NO pain, no distress, no SOB. Patient on Cardiac diet. Patient has to L forearm 22g, patent on SL. Bed is locked in lowest position. Call light within reach, all needs met, will endorse to nightshift nurse.
--- NOTE | 2022-05-13 20:00 | NUR ---
Patient sitting at side of bed. A/O x 4, Estonian speaking. Patient Breathing even and unlabored on oxygen saturations at 100%. NO pain, no distress, no SOB. Patient on Cardiac diet. Patient has to L hand 22g, patent on SL. pt has order for DC. awaiting home health o2 to be delivered at home before DC. Bed is locked in lowest position. Call light within reach, all needs met, will continue to monitor.
[2022-05-13] MEDS: ATORVASTATIN 20 MG TABLET PO SCH (21:37)
[2022-05-13] MEDS: INSULIN GLARGINE 100 UNITS/ML, 10 ML VIAL SUBCUT SCH (21:45)
[2022-05-14] MEDS: IPRATROPIUM BROM 0.5 MG/2.5 ML VIAL.NEB (ATROVENT) INH SCH ×5 (00:28→16:15)
[2022-05-14] MEDS: ALBUTEROL SULFATE 0.083% 2.5 MG/3 ML VIAL.NEB INH SCH ×5 (00:29→16:15)
[2022-05-14 01:34] VITALS: BP_SYST 149
[2022-05-14] MEDS: BUDESONIDE 0.5 MG/2 ML AMPUL.NEB INH SCH (07:36)
[2022-05-14 08:07] VITALS: BP_SYST 142
--- NOTE | 2022-05-14 08:07 | NUR ---
Patient stable; resting comfortably in bed with no distress noted and no complaint of pain at this time.
[2022-05-14] MEDS: ASPIRIN 81 MG TABLET(ECOTRIN) PO SCH ×2 (09:00→09:24)
--- NOTE | 2022-05-14 09:04 | NUR ---
ROOM AIR OXYGEN SATURATION WHILE IN BED DISCONTINUED O2, ROOM AIR 02 SAT 93%, WILL AMBULATE PATIENT LATER AND WILL CHECK O2 SAT.
--- NOTE | 2022-05-14 09:08 | NUR ---
Patient on room air, ambulating in hallway with standby assist from RN. Checked O2 sat once back in room: 91%.
[2022-05-14] MEDS: ISOSORBIDE MONONITRATE 30 MG TAB.ER.24H PO SCH (09:22)
[2022-05-14] MEDS: CITALOPRAM HYDROBROMIDE 20 MG TABLET PO SCH (09:22)
[2022-05-14] MEDS: CARVEDILOL 12.5 MG TABLET (COREG) PO SCH (09:23)
[2022-05-14] MEDS: LOSARTAN POTASSIUM 50 MG TABLET (COZAAR) PO SCH (09:23)
[2022-05-14] MEDS: FINASTERIDE 5 MG TABLET (PROSCAR) PO SCH (09:23)
[2022-05-14] MEDS: TAMSULOSIN HCL 0.4 MG CAP PO SCH (09:24)
[2022-05-14] MEDS: METHYLPREDNISOLONE SOD SUCC 40 MG/ML VIAL IVP SCH (09:24)
--- NOTE | 2022-05-14 09:24 | NUR ---
Scheduled medications given per order. Emptied 250mls of clear, yellow urine from urinal. Patient stable at this time.
--- NOTE | 2022-05-14 09:33 | NUR ---
ROOM AIR OXYGEN POST AMBULATION PATIENT O2 SAT POST AMBULATION 91%
[2022-05-14 11:19] VITALS: BP_SYST 140
[2022-05-14] MEDS: AZITHROMYCIN 500 MG in NS 250 ML IV SCH (11:50)
--- NOTE | 2022-05-14 11:50 | NUR ---
Scheduled IV abx given per order. Checked blood sugar: 177 mg/dl - will cover per sliding scale. Patient stable at this time. Addendum: 05/14/22 at 1201 by Betty Hook RN Emptied 275mls of clear, yellow urine from urinal.
[2022-05-14] MEDS: cefTRIAXone 1 GM in D5W 50 ML IV SCH (14:02)
--- NOTE | 2022-05-14 14:02 | NUR ---
Scheduled IV abx and po medication given per order. Patient stable with and daughter at bedside. Addendum: 05/14/22 at 1442 by Betty Hook RN 1410: Covered per sliding scale: 2 units
[2022-05-14] MEDS: INSULIN REGULAR, HUMAN 100 UNITS/ML, 3 ML VIAL (humuLIN R) SUBCUT PRN (14:10)
[2022-05-14 16:16] VITALS: BP_SYST 140
[2022-05-14 16:48] VITALS: BP_SYST 124
--- NOTE | 2022-05-14 16:50 | NUR ---
Discharge instructions Both written and verbal discharge instructions given to patient, , and daughter. Patient given medication reconciliation form and advised to waste picker prescription medication from [facility] in [place]. Encouraged to follow up with PCP in 1 week. Patient and states that appointment already scheduled on 05/19/22 at 3:15pm. Also encouraged to call and schedule appointment with pulmonary doctor in 1 week (# provided [phone]). Exit Care provided. Patient verbalized understanding. Ambulatory with steady gait for discharge to home. ID band removed and peripheral IV removed intact with no active bleeding; pressure dressing applied to site. All belongings with patient. DME and portable oxygen delivered to patient's home earlier today.
--- NOTE | 2022-05-14 16:55 | NUR ---
Discharge Patient discharged in stable condition; accompanied by and daughter. No distress noted at time of discharge.
== END 2022-05-14 16:55 | disposition home or self-care (01) ==
LOC: SED 19:05 → STU 05-12 03:29
PROVIDERS: ADMIT Internal Medicine; ATTEND Internal Medicine
DX: J96.01 Acute respiratory failure with hypoxia (principal); Z20.822 Contact with and (suspected) exposure to COVID-19; J44.1 Chronic obstructive pulmonary disease with (acute) exacerbation; J44.0 Chronic obstructive pulmonary disease with (acute) lower respiratory infection; J18.9 Pneumonia, unspecified organism; E11.9 Type 2 diabetes mellitus without complications; N40.0 Benign prostatic hyperplasia without lower urinary tract symptoms; I10 Essential (primary) hypertension; E78.5 Hyperlipidemia, unspecified; Z79.4 Long term (current) use of insulin; Z87.891 Personal history of nicotine dependence; Z79.899 Other long term (current) drug therapy
CPT/HCPCS: 80053 ×2; 82550; 83880; 84484; 36415 ×3; 93005; 71045; 94640 ×4; 83605; 87426; 96365; 96366 ×3; 96372 ×3; 96375; 85025 ×2; 87081; 82803; 94760 ×3; 99285; 84145; 82785; 96376 ×2; 96368; J7613 ×4; J0456 ×2; J0696 ×2; J1815 ×2; J1030 ×3; J7626 ×3; J7060 ×2; J7050 ×2; G0378 ×3; J2405

== ENCOUNTER 2023-05-24 16:59 | Emergency (ER) | payer OTHER ==
[~2023-05-24] VITALS: Ht 172.7 cm; Wt 79.4 kg
[~2023-05-24 16:59] MED LIST changes: +FINA-37 PO; -FINA5TAB3 PO; +LOSA-413 PO; -LOSA50TA3 PO; +MONT-47 PO; -MONT10TA22 PO; +PRED20TA PO
[2023-05-24 17:00] VITALS: BP_SYST 167; PULSE 87; RESP 18; TEMP 97.1; O2SAT 96
[2023-05-24] MEDS ORDERED: DEXTROSE 50% JECT 50 ML DISP.SYRIN IVP ONE (17:15)
[2023-05-24] MEDS ORDERED: D10W 1,000 ML IV SCH (17:30)
[2023-05-24] MEDS ORDERED: CITA10TA14 PO (17:48)
[2023-05-24] MEDS ORDERED: ALBMDI INH (17:48)
[2023-05-24] MEDS ORDERED: ATOR20TA64 PO (17:49)
[2023-05-24 18:11] LABS: BASOPHILS % (AUTO) 0.5 % (0.0-2.0); EOSINOPHILS # (AUTO) 0.3 K/uL (0.0-0.4); HEMATOCRIT 37.2 % (36-54); HEMOGLOBIN 12.9 g/dL (14.0-18.0); LYMPHOCYTES # (AUTO) 1.6 K/uL (1.0-5.5); LYMPHOCYTES % (AUTO) 17.8 % (20.5-51.5); MEAN CORPUSCULAR HEMOGLOBIN 32 pg (27-31); MEAN CORPUSCULAR HGB CONC 35 % (32-36); MEAN CORPUSCULAR VOLUME 92 fL (79.0-98.0); MONOCYTES # (AUTO) 0.7 K/uL (0.0-1.0); MONOCYTES % (AUTO) 7.3 % (1.7-9.3); NEUTROPHILS # (AUTO) 6.6 K/uL (1.8-7.7); NEUTROPHILS % (AUTO) 71.4 % (40.0-70.0); PLATELET COUNT (AUTO) 273 K/uL (130-430); RED BLOOD CELL COUNT(AUTO) 4.06 MIL/uL (4.2-6.2); RED CELL DISTRIBUTION WIDTH 14.4 % (9.0-15.0); WHITE BLOOD COUNT (AUTO) 9.2 K/uL (4.8-10.8)
[2023-05-24 18:29] LABS: ALANINE AMINOTRANSFERASE 22 U/L (12-78); ALBUMIN 3.7 g/dL (3.4-4.8); ANION GAP 7 (5-15); ASPARTATE AMINOTRANSFERASE 12 U/L (10-37); BILIRUBIN,DIRECT 0.1 mg/dL (0.0-0.3); CALCIUM 8.8 mg/dL (8.4-11.0); CARBON DIOXIDE 29 mmol/L (23-29); CHLORIDE 101 mmol/L (98-107); GLUCOSE 169 mg/dL (74-106); POTASSIUM 4.1 mmol/L (3.5-5.1); SODIUM SERUM 137 mmol/L (136-145); TOTAL BILIRUBIN 0.6 mg/dL (0.0-1.0); TOTAL PROTEIN, SERUM 7.2 g/dL (6.4-8.3); UREA NITROGEN, BLOOD 18 mg/dL (8-21)
[2023-05-24 19:21] LABS: ALCOHOL, BLOOD < 3 mg/dL (<10)
[2023-05-24 19:38] LABS: BILIRUBIN,URINE NEGATIVE (NEGATIVE); BLOOD, URINE NEGATIVE (NEGATIVE); CLARITY/URINE CLEAR (CLEAR); COLOR,URINE YELLOW (YELLOW); GLUCOSE,URINE NEGATIVE (NEGATIVE); KETONES,URINE NEGATIVE (NEGATIVE); LEUKOCYTE ESTERASE ,URINE NEGATIVE (NEGATIVE); NITRITE, URINE NEGATIVE (NEGATIVE); PROTEIN URINE NEGATIVE (NEGATIVE); UROBILINOGEN,URINE 0.2 (0.2-1.0)
[2023-05-24 19:49] LABS: BARBITURATE, URINE NEGATIVE (NEG <=200)
[2023-05-24 19:50] LABS: BENZODIAZEPINE, URINE NEGATIVE (NEG <=150); CANNABINOID, URINE NEGATIVE (NEG <=50); COCAINE, URINE NEGATIVE (NEG <=150); METHAMPHETAMINES SCREEN,URINE NEGATIVE (NEG <=500); URINE AMPHETAMINE NEGATIVE (NEG <=500); URINE METHADONE NEGATIVE (NEG <=200)
[2023-05-24 19:51] LABS: OPIATE, URINE NEGATIVE (NEG <=100); PHENCYCLIDINE SCREEN,URINE NEGATIVE (NEG <=25); UR TRICYCLIC ANTIDEPRESSANTS NEGATIVE (NEG <=300); URINE OXYCODONE SCREEN NEGATIVE (NEG <=100)
[2023-05-24] MEDS: IPRATROPIUM/ALBUTEROL SULFATE 3 ML AMPUL.NEB (DUONEB) INH ONE (21:50)
[2023-05-24] MEDS ORDERED: methylPREDNISolone SOD SUCC/PF 62.5 MG/ML VIAL ONE (21:53)
[2023-05-24] MEDS: METHYLPREDNISOLONE SOD SUCC 40 MG/ML VIAL IVP ONE (22:04)
[2023-05-24] MEDS: ONDANSETRON HCL 4 MG/2 ML VIAL IVP ONE (22:16)
[2023-05-24 23:06] VITALS: BP_SYST 134; PULSE 105; RESP 22; TEMP 98.6; O2SAT 92
== END 2023-05-24 22:54 | disposition home or self-care (01) ==
LOC: SED 16:59
DX: E11.649 Type 2 diabetes mellitus with hypoglycemia without coma (principal); J45.901 Unspecified asthma with (acute) exacerbation; I10 Essential (primary) hypertension; Z79.4 Long term (current) use of insulin; Z91.010 Allergy to peanuts; Z79.899 Other long term (current) drug therapy
CPT/HCPCS: 99285; 96374; 70450; 71045; 96375; 80307; 80076; 80048; 85025; 87040; 84484; 36415; 93005; 94640; 82948; 81003; 81001; J2405; G0482; J1030; J2930